=== PATIENT | male | born 1965 | race Caucasian/White ===

== ENCOUNTER 2018-11-09 12:01 | Emergency (ER) | payer BC ==
[2018-11-09] MEDS ORDERED: ASPIRIN 81 MG TABLET, CHEWABLE PO ONE (12:05)
[2018-11-09 12:20] LABS: HEMATOCRIT 45.1 % (37.9-51.0); HEMOGLOBIN 15.3 g/dL (13.5-17.0); MEAN CORPUSCULAR VOLUME 88 fl (80-97); PLATELET COUNT 159 10^3/uL (150-450); RED BLOOD COUNT 5.12 10^6/uL (4.35-5.55); RED CELL DISTRIBUTION WIDTH 15.3 % (11.5-14.0); WHITE BLOOD COUNT 11.9 10^3/uL (4.0-10.5)
[2018-11-09 12:29] LABS: ALANINE AMINOTRANSFERASE 27 U/L (21-72); ALBUMIN 4.1 g/dL (3.5-5.0); ALKALINE PHOSPHATASE 73 U/L (38-126); ANION GAP 13 (5-19); ASPARTATE AMINO TRANSFERASE 21 U/L (17-59); BILIRUBIN,DIRECT 0.2 mg/dL (0.0-0.4); BILIRUBIN,TOTAL 1.2 mg/dL (0.2-1.3); BLOOD UREA NITROGEN 17 mg/dL (7-20); CALCIUM 9.5 mg/dL (8.4-10.2); CARBON DIOXIDE 22 mmol/L (22-30); CHLORIDE 105 mmol/L (98-107); CREATINE KINASE 229 U/L (55-170); GLUCOSE 114 mg/dL (75-110); TOTAL PROTEIN 6.8 g/dL (6.3-8.2)
[2018-11-09] MEDS ORDERED: ONDANSETRON HCL INJ/PF 4 MG/2 ML SDV IV ONE (12:32)
[2018-11-09] MEDS ORDERED: NORMAL SALINE 1000 ML 1,000 ML IV ONE ×2 (12:33→14:05)
[2018-11-09 12:40] LABS: CREATINE KINASE MB 0.29 ng/mL (<4.55)
[2018-11-09 12:41] LABS: TROPONIN I < 0.012 ng/mL
[2018-11-09 12:58] LABS: ABSOLUTE LYMPHOCYTES# (MANUAL) 0.4 10^3/uL (0.5-4.7); ABSOLUTE MONOCYTES # (MANUAL) 0.2 10^3/uL (0.1-1.4); ABSOLUTE NEUTROPHILS# (MANUAL) 11.3 10^3/uL (1.7-8.2); BAND NEUTROPHILS % (MANUAL) 1 % (3-5); BASOPHILS % (MANUAL) 0 % (0-2); EOSINOPHILS % (MANUAL) 0 % (0-6); LYMPHOCYTES % (MANUAL) 1 % (13-45); MONOCYTES % (MANUAL) 2 % (3-13); SEGMENTED NEUTROPHILS % (MAN) 94 % (42-78); TOTAL CELLS COUNTED 100
[2018-11-09 13:00] LABS: ANISOCYTOSIS SLIGHT; PLATELET CLUMPS PRESENT; PLATELET COMMENT ADEQUATE
--- NOTE | 2018-11-09 13:00 | RADIOLOGY REPORT (SQ) ---
EXAM DESCRIPTION: CHEST SINGLE VIEW COMPLETED DATE/TIME: 11/09/2018 12:51 pm REASON FOR STUDY: cp COMPARISON: None. EXAM PARAMETERS: NUMBER OF VIEWS: One view. TECHNIQUE: Single frontal radiographic view of the chest acquired. RADIATION DOSE: NA LIMITATIONS: Overlying jewelry. FINDINGS: LUNGS AND PLEURA: No opacities, masses or pneumothorax. No pleural effusion. MEDIASTINUM AND HILAR STRUCTURES: No masses. Contour normal. HEART AND VASCULAR STRUCTURES: Heart normal in size. Normal vasculature. BONES: No acute findings. HARDWARE: None in the chest. OTHER: No other significant finding. IMPRESSION: NO ACUTE RADIOGRAPHIC FINDING IN THE CHEST. TECHNICAL DOCUMENTATION: JOB ID: [id number] [employer]- All Rights Reserved Reading location - IP/workstation name: [email or web address]
[2018-11-09] MEDS ORDERED: LORAZEPAM INJ 2 MG/1 ML VIAL IV ONE (13:15)
[2018-11-09] MEDS ORDERED: KETOROLAC TROMETHAMINE INJ/PF 30 MG/1 ML SDV IV ONE (13:15)
[2018-11-09 13:18] LABS: A TYPE INFLUENZA AG NEGATIVE (NEGATIVE); B INFLUENZA AG NEGATIVE (NEGATIVE)
--- NOTE | 2018-11-09 13:39 | ER Document Report ---
ED General - General Chief Complaint: Shortness Of Breath Stated Complaint: SHORTNESS OF BREATH Time Seen by Provider: 11/09/18 12:19 - HPI Notes: Patient is a 53-year-old male who presents to the emergency department for evaluation of chest pain, cough, shortness of breath. Symptoms started last night. His cough is dry, nonproductive. He has had fevers as high as 101. He has had nausea with multiple episodes of nonbloody, nonbilious emesis. He complains of a cramping type pain across his chest and upper abdomen. Normal bowel movements. He is traveling in from out of town to visit with family. - Related Data Allergies/Adverse Reactions: No Known Allergies Allergy (Unverified 11/09/18 12:04) Past Medical History - General Information source: Patient - Social History Smoking Status: Former Smoker - Patient states he quit smoking 1 week ago Frequency of alcohol use: Rare Drug Abuse: None Family History: Reviewed & Not Pertinent Endocrine Medical History: Reports: Hx Hypothyroidism Review of Systems - Review of Systems Constitutional: See HPI EENT: No symptoms reported Cardiovascular: See HPI Respiratory: See HPI Gastrointestinal: No symptoms reported Genitourinary: No symptoms reported Skin: No symptoms reported Neurological/Psychological: No symptoms reported Physical Exam - Vital signs Notes: Patient is febrile, mildly tachycardic. - Notes Notes: Vital signs reviewed, please refer to chart. Patient is normocephalic, atraumatic. Pupils equal round, reactive to light. Throat shows very mild erythema without exudates. Neck is supple without meningismus. Heart is regular rate and rhythm. Lungs are clear to auscultation bilaterally. Abdomen is soft, nontender, normoactive bowel sounds throughout. Extremities without cyanosis, clubbing, edema. Peripheral pulses are equal. Skin is warm and diaphoretic. Patient is awake, alert, neurological exam is nonfocal. Course - Re-evaluation Re-evalutation: 11/09/18 13:42 Patient presents emergency department for evaluation. On arrival he is febrile. His findings are most consistent with influenza. His lungs are clear. He is oxygenating well. He is given IV fluids, Zofran. He had been given aspirin, Tylenol prior to arrival. During the course of his stay patient became slightly agitated. He stated he was having cramping across the chest and abdomen. His respiratory rate and increased with this. He was given Ativan as well as IV Toradol. His came to the department. She states that he has been extremely anxious as of late. On recheck vital signs showed a heart rate of 91, pulse ox of 97% on room air, respiratory rate of 17. Chest x-ray read by radio logy showing no acute cardiopulmonary disease. EKG negative for any ST changes. Influenza swab was negative, but I do believe this to be a false negative. We will treat him for influenza symptomatically. He is to follow-up with primary care, return to the emergency department with worsening or new concerning symptoms. 11/09/18 14:01 11/09/18 14:09 - Laboratory Result Diagrams: 11/09/18 12:05 11/09/18 12:05 Laboratory results interpreted by me: 11/09/18 11/09/18 12:05 12:05 WBC 11.9 H RDW 15.3 H Seg Neuts % (Manual) 94 H Band Neutrophils % 1 L Lymphocytes % (Manual) 1 L Monocytes % (Manual) 2 L Abs Neuts (Manual) 11.3 H Abs Lymphs (Manual) 0.4 L Creatinine 1.40 H Est GFR (Non-Af Amer) 53 L Glucose 114 H Creatine Kinase 229 H Discharge - Discharge Clinical Impression: Influenza Condition: Stable Disposition: HOME, SELF-CARE Additional Instructions: INFLUENZA: The physician feels that you have influenza -- the "flu". Influenza is an infection caused by a virus. Symptoms include generalized aching, fever, headache, dry cough, and fatigue. Some patients with the flu also have nausea, vomiting, and diarrhea. The fever and aches usually last two to four days, with the cough persisting another one to two weeks. Treatment of the flu, for the most part, is simply treatment of symptoms. Rest, drink plenty of fluids, and use acetaminophen for fever and aches. Do not take aspirin. There is an anti-viral medication, called Tamiflu, which may help in "type A" flu, but it's not helpful in every case of flu, and only works if started within the first 24 - 48 hours of the start of symptoms. The physician will determine whether this medication can help you. To prevent spread of the virus, use good handwashing. Shared toys should be cleaned with disinfectant. Clean the toilets, sinks, and counter surfaces in bathrooms. Launder clothing in hot water. What are conditions that should receive medical attention? The development of difficulty breathing. Lip color changes to blue or purple. Persistent vomiting and unable to keep liquids down with signs of dehydration such as: dizziness when standing, unable to urinate, or if child/infant is crying no tears are noticed. Is less responsive than normal or becomes confused. How do I decrease the spread of flu in my home? Taking care of the sick patient at home: Keep the sick person in a room separate from the common areas of the house. Keep the "sickroom" door closed. If the person with the flu needs to leave the home, they should cover their nose/mouth when coughing or sneezing and wear a disposable (surgical) mask if available. These masks may be available at your local pharmacy, medical supply and hardware store. If the sick person is in common areas of the house, have them wear a surgical mask. If possible, have the sick person use a separate bathroom that should be cleaned daily with a household disinfectant. If you are the caregiver: Avoid being face to face with the sick adult person as much as possible. Try to stay at least 6 feet away and wear a disposable surgical mask when possible. When holding small children who are sick, place their chin on your shoulder so that they will not cough in your face. Wash your hands after you touch the sick person or handle their tissues and laundry. Wear a mask if you leave home, as you may be infected from taking care of someone and not know it yet. Watch yourself and others in the home for flu symptoms and contact your doctor if symptoms occur. NOTE: Antiviral medication used to reduce the sympt oms of the flu works only if taken within 48 hours, and best within 24 hours of symptom onset. Household Cleaning, laundry and waste disposal: Tissues and other disposable items used by the sick person should be thrown away in the trash. Wash your hands after touching these used items. No special waste disposal is required. Keep surfaces (especially bedside tables, bathroom surfaces, and toys for children) clean by wiping them down with a safe household disinfectant according to the directions on the product label. Per Center for Disease Control advice, most people will not receive testing to confirm flu. Also based on the person's health history and onset of symptoms, not all patients will receive prescriptions for antiviral medications. If you have questions related to this, please ask your healthcare provider. For more information, you can call the Centers for Disease Control and Prevention (CDC) Hotline at 7-120-AAFProsodic This line is available in Norwegian and Georgian, 24 hours a day, 7 days a week. Or www.inTarvo or www.cdc.gov Flu-Like Illness Home Instructions: The influenza virus infection can cause a wide rage of symptoms, including: Fever, cough, sore throat, body aches, headaches, chills, fatigue, with some patients reporting diarrhea and vomiting Like seasonal influenza A, H1N1 ("swine flu")in humans can vary in severity from mild to severe Severe illness with pneumonia, respiratory failure and even is possible Certain groups might be more likely to develop a severe illness from H1N1 infection. Sometimes bacterial infections may occur at the same time as or after infection with influenza viruses and lead to pneumonias, ear infections, or sinus infections. How Flu Spreads The main way that influenza viruses spread is through respiratory droplets of coughs and sneezes. This can happen when someone with the infection coughs or sneezes and the particles fly through the air and land on other people and surfaces. If the person covers their mouth and nose with their hand but does not wash their hands immediately, then these germs are passed onto the next object that they touch. People with Influenza A or suspected H1N1 (swine flu) who are cared for at home should: Check with their doctor about any special care that they might need if they are or have a health condition such as diabetes, heart disease, asthma or emphysema. Also, limit caregiver to one (if possible). women or those with chronic health conditions should not take care of the flu patient unless necessary. Check with their doctor about whether or not medications are needed that may lessen the symptoms of the flu. Stay at home until 24 hours fever free without the use of fever reducing medication. Get plenty of rest and avoid other healthy people in your home. Drink plenty of clear liquids to keep from getting dehydrated. Take medications like Tylenol (Acetaminophen), Advil/Motrin/Nuprin (Ibuprofen) or Aleve (Naproxen) for fevers and aches. All children under the age of 18 years of age should not take aspirin or products containing aspirin (e.g. Pepto Bismol), as this can cause a rare serious illness called Venessa Syndrome. Over the counter medications for flu and colds may help, but it is very important to follow the package directions. Remember that the medicine may help the symptoms, but it will not help prevent others from getting sick if they are around you. Cover coughs and sneezes using your bent arm. Clean hands with soap and water or an alcohol-based hand rub often, especially after using tissues to cough or sneeze. Encourage hand washing frequently for all people living in the home! The sick person should not have visitors other than caregivers. Encourage concerned loved ones to call instead of visit. Avoid close contact with others-do not go to work or school while sick. USE OF ACETAMINOPHEN (Tylenol): Acetaminophen may be taken for pain relief or fever control. It's much safer than aspirin, offering a wider range of "safe" dosages. It is safe during . Some brand names are Tylenol, Panadol, Datril, Anacin 3, Tempra, and Liquiprin. Acetaminophen can be repeated every four hours. The following are maximum recommended dosages: >89 pounds or adults 650 mg to 900 mg Acetaminophen can be repeated every four hours. Maximum dose not to exceed 4000 mg a day. These maximum recommended dosages are slightly higher than the dosages written on the product container, but these dosages are very safe and below the toxic dosage for acetaminophen. ORAL NARCOTIC MEDICATION: You have been given a prescription for pain control. This medication is a narcotic. It's best taken with food, as nausea can result if taken on an empty stomach. Don't operate machinery or drive within six hours of taking this medication. Do not combine this medicine with alcohol, or with any medication which can cause sedation (such as cold tablets or sleeping pills) unless you get permission from the physician. Narcotics tend to cause constipation. If possible, drink plenty of fluids and eat a diet high in fiber and fruits. Please be aware that prescription narcotics also have the potential for abuse. People become addicted to these medications because of the general sense of wellbeing that they induce. This feeling along with a significant reduction in tension, anxiety, and aggression provides a stimulating seductive quality to these drugs. Once your pain is under control, we encourage you to discard your unused narcotics. FOLLOW-UP CARE: If you have been referred to a physician for follow-up care, call the physicians office for an appointment as you were instructed or within the next two days. If you experience worsening or a significant change in your symptoms, notify the physician immediately or return to the Emergency Department at any time for re-evaluation.
[2018-11-09 14:28] VITALS: BP 120/60
--- NOTE | 2018-11-09 23:26 | EKG REPORT ---
SEVERITY:- NORMAL ECG - SINUS RHYTHM NONSPECIFIC ST-T CHANGES : Confirmed by: Maged Lewis 09-Nov-2018 23:25:18
== END 2018-11-09 14:30 | disposition home or self-care (01) ==
LOC: ER 12:01
DX: J11.1 Influenza due to unidentified influenza virus with other respiratory manifestations (principal); R06.02 Shortness of breath; R07.9 Chest pain, unspecified; R25.2 Cramp and spasm; R05 Cough; R50.9 Fever, unspecified; R11.2 Nausea with vomiting, unspecified; R10.10 Upper abdominal pain, unspecified; Z87.891 Personal history of nicotine dependence
CPT/HCPCS: 93005; 99284; 96361; 96374; 96375; 36415; 82553; 82550; 83735; 85025; 80053; 84484; 87804; 71045; 93010; J1885; J2060; J2405; J7030